=== PATIENT | female | born 1975 | race Caucasian/White ===

== ENCOUNTER → 2018-02-20 14:21 | Outpatient (CLI) | payer OTHER, SELFPAY ==
[2018-02-24 08:34] LABS: HPV HC, High Risk Negative (Negative)
--- OUTSIDE RECORDS SUMMARY | 2018-04-18 00:22 | XMS RPT_ITS | Continuity of Care Document ---
:1975 Author Organization [facility] Address [address] [facility] [address] [place] [address] Phone Care Team Providers Name Role Phone Staci Flowers DO Unavailable JOHN Chapin Unavailable Unavailable Unavailable Unavailable Problems Name Dates Details Abnormal glucose tolerance test (Renamed from Abnormal glucose tolerance test (GTT)) (R73.02, 790.22) Status: Active BMI 36.0-36.9,adult (Z68.36, V85.36) Status: Active Body mass index 34.0-34.9, adult (Z68.34, V85.34) Status: Active Encounter for screening for lipid disorder (Z13.220, V77.91) Status: Active Encounter for screening mammogram for breast cancer (Renamed from Encounter for screening mammogram for malignant neoplasm of breast) (Z12.31, V76.12) Status: Active Family history of diabetes mellitus (Z83.3, V18.0) Status: Active Family history of diabetes mellitus in grandmother (Z83.3, V18.0) Status: Active History of abnormal cervical Pap smear (Z87.898, V13.29) Status: Active Influenza vaccination declined (Renamed from Refused influenza vaccine) (Z28.21, V64.06) Status: Active Need for prophylactic vaccination and inoculation against influenza (Renamed from Need for immunization against influenza) (Z23, V04.81) Status: Active Nonsmoker (Z78.9, V49.89) Status: Active PCOD (polycystic ovarian disease) (E28.2, 256.4) Comments: used to see Dr Pritchard when fertile and child bearing yrs with her PCOD but now no longer working on having children so would like to do female health here Status: Active Screening for HPV (human papillomavirus) (Renamed from Encounter for screening for human papillomavirus (HPV)) (Z11.51, V73.81) Status: Active Sore throat (J02.9, 462) Status: Active Well woman exam (Renamed from Encounter for well woman exam) (Z01.419, V72.31) Status: Active Medications Name Dates Details Aspirin Low Dose 81 MG Oral Tablet Delayed Release 1 (one) Tablet DR qd for 30 days Refills: 0 Ordered:26-Jan-2016 Abner Flowers DO, DO, Kathleen Start : 26-Jan-2016 Active MedroxyPROGESTERone Acetate 10 MG Oral Tablet 1 (one) Tablet qd for 30 days Quantity: 14 {Tablet} Refills: 11 Ordered:20-Feb-2018 Abner Flowers DO, DO, Kathleen Start : 20-Feb-2018 Active Comments:take first 14days of month only MetFORMIN HCl 500 MG Oral Tablet 1 (one) Tablet Tablet bid for 0 days Quantity: 60 {Tablet} Refills: 3 Ordered:01-Feb-2017 Shanti Trinidad LPN Start : 01-Feb-2017 Active Augmentin 875-125 MG Oral Tablet 1 Tablet bid for 0 days Quantity: 20 {Tablet} Refills: 0 Ordered:26-Jan-2016 Amber Chapin LPN Start : 03-Oct-2012 End : 26-Jan-2016 Inactive Nasonex 50 MCG/ACT Nasal Suspension 1 spray(s) each nostril daily for 0 days Quantity: 1 {Suspension} Refills: 0 Ordered:26-Jan-2016 Amber Chapin LPN Start : 03-Oct-2012 End : 26-Jan-2016 Inactive No Known Historical Medications POLYMYXIN B-TRIMETHOPRIM, 12844-9.1UNIT/ML-% (Ophthalmic Solution) 1 Drop(s) q3hrs for 7 days Refills: 0 Ordered:23-Aug-2011 Moon Mejia CNP Start : 23-Aug-2011 End : 30-Aug-2011 Inactive Allergies and Adverse Reactions Name Dates Details No Known Drug Allergies (Allergy) Onset: 23-Aug-2011 Status: Active Past Medical History Name Dates Details BMI 35.0-35.9,adult (Z68.35, V85.35) Status: Inactive as of 21-Mar-2017 Conjunctivitis, acute (H10.30, 372.00) Status: Inactive as of 01-Feb-2017 Influenza vaccination declined (Renamed from Refused influenza vaccine) (Z28.21, V64.06) Status: Inactive as of 01-Feb-2017 Irregular menses (N92.6, 626.4) Status: Inactive as of 20-Feb-2018 Left thigh pain (M79.652, 729.5) Status: Inactive as of 20-Feb-2018 Sciatica, left side (M54.32, 724.3) Status: Inactive as of 20-Feb-2018 Sinus congestion (R09.81, 478.19) Status: Inactive as of 01-Feb-2017 Social History Name Dates Details Caffeine Use Comments: qd Status: Active Exercise History: Does not exercise. Status: Active Living Situation: Lives with spouse. Status: Active No Drug Use Status: Active Non Drinker/No Alcohol Use Status: Active Number of Child (age 0-17) Dependents: 3. Status: Active Tobacco use: Never smoker. Status: Active Smoking Status Name Dates Details Never smoker Vital Signs Date Test Result Details 03-Tff-178050:01 Temperature 97.1 f Comments: Method: Temporal Pulse 86 /min Comments: Pattern: Regular Respiration Rate 18 /min Comments: Pattern: Unlabored O2 SAT 96 % Comments: Room air BP Systolic 148 mm[Hg] Comments: Patient Position: Sitting; Cuff Location: Left Arm; Cuff Size: Standard BP Diastolic 82 mm[Hg] Comments: Patient Position: Sitting; Cuff Location: Left Arm; Cuff Size: Standard Weight 181.375 lb Height 61 in Body Mass Index Calculated 34.27 kg/m2 Body Surface Area Calculated 1.81 m2 26-Ady-926672:21 Temperature 98.4 f Pulse 74 /min Comments: Pattern: Regular Respiration Rate 16 /min Comments: Pattern: Unlabored O2 SAT 96 % Comments: Room air BP Systolic 124 mm[Hg] Comments: Patient Position: Sitting; Cuff Location: Left Arm; Cuff Size: Standard BP Diastolic 82 mm[Hg] Comments: Patient Position: Sitting; Cuff Location: Left Arm; Cuff Size: Standard Weight 192 lb Height 61 in Body Mass Index Calculated 36.28 kg/m2 Body Surface Area Calculated 1.86 m2 :37 Temperature 98.5 f Comments: Method: Temporal Pulse 44 /min Comments: Pattern: Regular Respiration Rate 18 /min Comments: Pattern: Unlabored O2 SAT 97 % Comments: Room air BP Systolic 118 mm[Hg] Comments: Patient Position: Sitting; Cuff Location: Left Arm; Cuff Size: Large BP Diastolic 70 mm[Hg] Comments: Patient Position: Sitting; Cuff Location: Left Arm; Cuff Size: Large Weight 188.125 lb Height 61 in Body Mass Index Calculated 35.55 kg/m2 Body Surface Area Calculated 1.84 m2 1-Elx-353801:38 Pulse 66 /min Comments: Pattern: Regular Respiration Rate 18 /min Comments: Pattern: Unlabored O2 SAT 97 % Comments: Room air BP Systolic 122 mm[Hg] Comments: Patient Position: Sitting; Cuff Location: Left Arm; Cuff Size: Standard BP Diastolic 80 mm[Hg] Comments: Patient Position: Sitting; Cuff Location: Left Arm; Cuff Size: Standard Weight 181.125 lb Height 61 in Body Mass Index Calculated 34.22 kg/m2 Body Surface Area Calculated 1.81 m2 :51 Temperature 96.8 f Comments: Method: Temporal Pulse 71 /min Comments: Pattern: Regular Respiration Rate 16 /min Comments: Pattern: Unlabored O2 SAT 97 % Comments: Room air BP Systolic 120 mm[Hg] Comments: Patient Position: Sitting; Cuff Location: Left Arm; Cuff Size: Standard BP Diastolic 74 mm[Hg] Comments: Patient Position: Sitting; Cuff Location: Left Arm; Cuff Size: Standard :34 Temperature 98.9 f Comments: Method: Oral Pulse 66 /min Comments: Pattern: Regular Respiration Rate 16 /min O2 SAT 97 % Comments: Room air BP Systolic 112 mm[Hg] Comments: Patient Position: Sitting; Cuff Location: Left Arm; Cuff Size: Standard BP Diastolic 72 mm[Hg] Comments: Patient Position: Sitting; Cuff Location: Left Arm; Cuff Size: Standard Results Date Description Value Details :34 Microscopic Examination Comments: PATIENT WAS FASTINGPERFORMED BY: RUBIO [facility] [id number] [facility] [id number] Bacteria Few (Normal) Mucus Threads Present (Normal) Epithelial Cells (non renal) 0-10 {/hpf} (Normal) Range: 0 - 10 RBC 0-2 {/hpf} (Normal) Range: 0 - 2 WBC 0-5 {/hpf} (Normal) Range: 0 - 5 :34 TSH (40928) Comments: PATIENT WAS FASTINGPERFORMED BY: [employer] [facility] [id number] TSH 1.490 {uIU/mL} (Normal) Range: 0.450-4.500 :34 URINALYSIS, W/ MICRO (21885) Comments: PATIENT WAS FASTINGPERFORMED BY: [employer] [facility] [id number] Microscopic Examination See below: (Normal) Comments: Microscopic was indicated and was performed. Microscopic Examination MICRON (Normal) Comments: Microscopic follows if indicated. Nitrite, Urine Negative (Normal) Urobilinogen,Semi-Qn 0.2 mg/dL (Normal) Range: 0.2-1.0 Bilirubin Negative (Normal) Occult Blood Negative (Normal) Ketones Trace (Abnormal) Glucose Negative (Normal) Protein Negative (Normal) WBC Esterase Negative (Normal) Appearance Clear (Normal) Urine-Color Yellow (Normal) pH 6.5 (Normal) Range: 5.0-7.5 Specific [place] 1.011 (Normal) Range: 1.005-1.030 :34 MICROALBUMIN: CREATININE RATIO Comments: PATIENT WAS FASTINGPERFORMED BY: [employer] [facility] [id number] ([id number]) AND (61949) Microalb/Creat Ratio <4.6 {mg/g_creat} (Normal) Range: 0.0-30.0 Microalbumin, Urine <3.0 ug/mL (Normal) Creatinine, Urine 64.6 mg/dL (Normal) :34 METABOLIC PANEL, COMPREHENSIVE Comments: PATIENT WAS FASTINGPERFORMED BY: [employer] [facility] [id number] (50179) ALT (SGPT) 18 [iU]/L (Normal) Range: 0-32 AST (SGOT) 18 [iU]/L (Normal) Range: 0-40 Alkaline Phosphatase, S 60 [iU]/L (Normal) Range: 39-117 Bilirubin, Total 0.4 mg/dL (Normal) Range: 0.0-1.2 A/G Ratio 1.7 (Normal) Range: 1.2-2.2 Globulin, Total 2.8 g/dL (Normal) Range: 1.5-4.5 Albumin, Serum 4.7 g/dL (Normal) Range: 3.5-5.5 Protein, Total, Serum 7.5 g/dL (Normal) Range: 6.0-8.5 Calcium, Serum 9.6 mg/dL (Normal) Range: 8.7-10.2 Carbon Dioxide, Total 21 mmol/L (Normal) Range: 18-29 Chloride, Serum 100 mmol/L (Normal) Range: 96-106 Potassium, Serum 4.7 mmol/L (Normal) Range: 3.5-5.2 Sodium, Serum 142 mmol/L (Normal) Range: 134-144 BUN/Creatinine Ratio 12 (Normal) Range: 9-23 eGFR If Africn Am 125 mL/min/1.73 (Normal) eGFR If NonAfricn Am 109 mL/min/1.73 (Normal) Creatinine, Serum 0.66 mg/dL (Normal) Range: 0.57-1.00 BUN 8 mg/dL (Normal) Range: 6-24 Glucose, Serum 85 mg/dL (Normal) Range: 65-99 4-Qol-059693:34 CBC W/AUTO DIFF WBC (53025) Comments: PATIENT WAS FASTINGPERFORMED BY: [facility] [facility] [id number] Immature Grans (Abs) 0.0 {x10E3/uL} (Normal) Range: 0.0-0.1 Immature Granulocytes 0 % (Normal) Baso (Absolute) 0.0 {x10E3/uL} (Normal) Range: 0.0-0.2 Eos (Absolute) 0.2 {x10E3/uL} (Normal) Range: 0.0-0.4 Monocytes(Absolute) 0.7 {x10E3/uL} (Normal) Range: 0.1-0.9 Lymphs (Absolute) 2.9 {x10E3/uL} (Normal) Range: 0.7-3.1 Neutrophils (Absolute) 6.5 {x10E3/uL} (Normal) Range: 1.4-7.0 Basos 0 % (Normal) Eos 2 % (Normal) Monocytes 7 % (Normal) Lymphs 28 % (Normal) Neutrophils 63 % (Normal) Platelets 340 {x10E3/uL} (Normal) Range: 150-379 RDW 13.6 % (Normal) Range: 12.3-15.4 MCHC 34.2 g/dL (Normal) Range: 31.5-35.7 MCH 30.2 pg (Normal) Range: 26.6-33.0 MCV 88 fL (Normal) Range: 79-97 Hematocrit 41.8 % (Normal) Range: 34.0-46.6 Hemoglobin 14.3 g/dL (Normal) Range: 11.1-15.9 RBC 4.74 {x10E6/uL} (Normal) Range: 3.77-5.28 WBC 10.3 {x10E3/uL} (Normal) Range: 3.4-10.8 :34 LIPID PANEL (36346) Comments: PATIENT WAS FASTINGPERFORMED BY: [facility] CenterKjsimp[address] [facility] [id number] LDL/HDL Ratio 2.5 {ratio_units} (Normal) Range: 0.0-3.2 Comments: LDL/HDL Ratio Men Women 1/2 Avg.Risk 1.0 1.5 Av g.Risk 3.6 3.2 2X Avg.Risk 6.2 5.0 3X Avg.Risk 8.0 6.1 LDL Cholesterol Calc 118 mg/dL (Abnormal) Range: 0-99 VLDL Cholesterol Kareem 23 mg/dL (Normal) Range: 5-40 HDL Cholesterol 47 mg/dL (Normal) Triglycerides 116 mg/dL (Normal) Range: 0-149 Cholesterol, Total 188 mg/dL (Normal) Range: 100-199 4-Mxl-617581:24 HgA1C , Office (82419) HgA1C , Office 5.6 % (Normal) Range: 4.6 - 7.1 :53 PAP I-G HPV Hi Risk Comments: Order Date: 01/27/16Order Info: 0830- 1 - [id number] INFORMATION:- CLINICAL INFORMATION:- DATE LMP/MENOPAUSE: LMP- COLLECTION VIAL: Thin Prep Vial- LINEWORKER SOURCE: CERVICAL/ENDOCERVICAL- COLLECTION TECHN IQUE: CX BROOM ONLYSpecimen Comment: [id number] Comment: No. of containers..01 CYTYC Thin Prep VialLabCorp (refer to report for specific site)refer to report for address and phone number HPV HC,HGH RISK Negative Comments: This high-risk HPV test detects thirteen high-risk types(16/18/31/33/35/39/45/51/52/56/58/59/68) withoutdifferentiation.Performed at: - [facility] [id number] (Normal) b Director: Ayanna Tovar MD, Phone: [phone] at: = - [facility] [id number] Director: Ayanna Tovar MD, Phone: [phone] PAPSMR Comment Comments: The Pap smear is a screening test designed to aid in thedetection of premalignant and malignant conditions of theuterine cervix. It is not a diagnostic procedure andshould not be used as the sole means (Normal) of detecting cervicalcancer. Both false-positive and false-negative reports dooccur. COMM . (Normal) TEST METHOD Comment Comments: This liquid based ThinPrep(R) pap test was screened withthe use of an image guided system. (Normal) Path prov. ICD9 Comment Comments: R87.610 (Normal) SIGN Comment Comments: Hetal Brewster MD, Pathologist (Normal) PERFORM Comment Comments: Chris Erickson, Washing Machine Installer (ASCP) (Normal) ADEQ Comment Comments: Satisfactory for evaluation. Endocervical and/or squamous metaplasticcells (endocervical component) are present. (Normal) DIAGN Comment Comments: EPITHELIAL CELL ABNORMALITY.ATYPICAL SQUAMOUS CELLS OF UNDETERMINED SIGNIFICANCE. (Abnormal) :06 HgA1C , Office (83053) HgA1C , Office 5.6 % (Normal) Range: 4.6 - 7.1 :51 LIPID PANEL (23033) Comments: PATIENT WAS FASTINGPERFORMED BY: CB [facility] [id number] [facility] [id number] LDL/HDL Ratio 2.2 {ratio_units} (Normal) Range: 0.0-3.2 Comments: LDL/HDL Ratio Men Women 1/2 Avg.Risk 1.0 1.5 Av g.Risk 3.6 3.2 2X Avg.Risk 6.2 5.0 3X Avg.Risk 8.0 6.1 LDL Cholesterol Calc 104 mg/dL (Abnormal) Range: 0-99 VLDL Cholesterol Kareem 21 mg/dL (Normal) Range: 5-40 HDL Cholesterol 48 mg/dL (Normal) Comments: According to ATP-III Guidelines, HDL-C >59 mg/dL is considered anegative risk factor for CHD. Triglycerides 104 mg/dL (Normal) Range: 0-149 Cholesterol, Total 173 mg/dL (Normal) Range: 100-199 90-Zvp-315194:30 Throat Culture (75925) Comments: PATIENT NOT FASTINGPERFORMED BY: [facility] [facility] [id number] Information: SRC:ROLANDO [id number] Result 1 BETAGA (Normal) Comments: Beta hemolytic Streptococcus, group AHeavy growthPenicillin and ampicillin are drugs of choice for treatment ofbeta- hemolytic streptococcal infections. Susceptibility testing ofpenicillins and other bet a-lactam agents approved by the FDA fortreatment of beta-hemolytic streptococcal infections need not beperformed routinely because nonsusceptible isolates are extremelyrare in any beta-hemolytic strepto coccus and have not been reportedfor Streptococcus pyogenes (group A). (CLSI 2010) Upper Respiratory Culture Final report (Normal) :52 Rapid Strep Test, Office (69180) Rapid Strep Test, Negative (Normal) Office :14 HCG QUANT. 1421 m[iU]/mL Range: 0-6 Non-preg (Abnormal) Comments: QUANTITATIVE hCG () TEST is *POSITIVE* AMENDED REPORT 10/29/06 0433 HCG QUANT. previously reported as: 1 mIU/mL AMENDED REPORT 10/29/06 0631 HCG QUANT. previously reported as: 1421 H mIU/mL Plan of Care Name Dates Details Instructions Encounter for screening for lipid disorder : Self breast exam Indication: Encounter for screening for lipid disorder Well woman exam (Renamed from Encounter for well woman exam) : HPV Vaccine Information 2005 Indication: Well woman exam (Renamed from Encounter for well woman exam) Well woman exam (Renamed from Encounter for well woman exam) : Self breast exam Indication: Well woman exam (Renamed from Encounter for well woman exam) Well woman exam (Renamed from Encounter for well woman exam) : *Well Female Maintenance ([facility]) Indication: Well woman exam (Renamed from Encounter for well woman exam) Well woman exam (Renamed from Encounter for well woman exam) : Pap/Pelvic/Bimanual/Rectal/Breast Exam was done. Indication: Well woman exam (Renamed from Encounter for well woman exam) BMI 36.0-36.9,adult : Follow up if no improvement or if symptoms worsen Indication: BMI 36.0-36.9,adult Left thigh pain : Sciatica: nerve pain Indication: Left thigh pain Left thigh pain : Eprescribed prescriptions (G8553) Indication: Left thigh pain Well woman exam (Renamed from Encounter for well woman exam) : Safe sex Indication: Well woman exam (Renamed from Encounter for well woman exam) Well woman exam (Renamed from Encounter for well woman exam) : HPV Vaccine Information 2005 Indication: Well woman exam (Renamed from Encounter for well woman exam) Well woman exam (Renamed from Encounter for well woman exam) : Self breast exam Indication: Well woman exam (Renamed from Encounter for well woman exam) Well woman exam (Renamed from Encounter for well woman exam) : *Well Female Maintenance (SMC) Indication: Well woman exam (Renamed from Encounter for well woman exam) Well woman exam (Renamed from Encounter for well woman exam) : Pap/Pelvic/Bimanual/Rectal/Breast Exam was done. Indication: Well woman exam (Renamed from Encounter for well woman exam) Conjunctivitis, acute : Follow up if no improvement or if symptoms worsen Indication: Conjunctivitis, acute Planned Observations HgA1C , Office (08615)Indication: Family history of diabetes mellitus in grandmother On: 42-Slz-167836:31 Request LIPID PANEL (14109)Indication: Encounter for screening for lipid disorder On: 57-Iwz-268968:30 Request HPV automatic (63998)Indication: Screening for HPV (human papillomavirus) (Renamed from Encounter for screening for human papillomavirus (HPV)) On: 47-Hhl-815851:24 Request Thin prep Pap (66348) (no STD testing)Indication: Well woman exam (Renamed from Encounter for well woman exam) On: 08-Xxb-318193:57 Request HPV automatic (31225)Indication: Screening for HPV (human papillomavirus) (Renamed from Encounter for screening for human papillomavirus (HPV)) On: 1-Won-492345:55 Request Thin prep Pap (64969) (no STD testing)Indication: Well woman exam (Renamed from Encounter for well woman exam) On: 1-Ort-875833:30 Request Planned Procedures SCREENING DIGITAL TOMOSYNTHESIS OF BREAST (34852)By: Lionel On: 20-Feb-2018 Staci Villa DO, DO, Kathleen MAMMOGRAM, SCREENING, BOTH BREAST (25503)By: Lionel LOPEZ, On: 26-Jan-2016 Intent Staci Goldberg DO Instructions Name Dates Details Left thigh pain : How to access health information online Indication: Left thigh pain Left thigh pain : How to access health information online - Detail Indication: Left thigh pain Left thigh pain : Patient Instructions Indication: Left thigh pain BMI 35.0-35.9,adult : How to access health information online Indication: BMI 35.0-35.9,adult BMI 35.0-35.9,adult : How to access health information online - Detail Indication: BMI 35.0-35.9,adult BMI 35.0-35.9,adult : Patient Instructions Indication: BMI 35.0-35.9,adult Sore throat : Patient Instructions Indication: Sore throat Encounters Office Visit On: 20-Feb-2018 11:01 Encounter Reason: Well Women Exam - The patient feels well with minor complaints, has good energy level and is sleeping well. Pap smear: date of last pap: (2015). Contraceptive history: The patient is not using any metho End: 20-Feb-2018 12:32 d of contraception at this time. Patient exercises a weekly. The patient reports that she performs monthly self breast exam. Calcium intake includes 1 serving milk daily. The patient has been using horm one replacement therapy, while she denies the use of oral contraceptives. Menstruation: Last menstrual period date: (01/10).Encounter Diagnosis: Well woman exam (Renamed from Encounter for well woman exam), Encounter for screening mammogram for breast cancer (Renamed from Encounter for screening mammogram for malignant neoplasm of breast), Body mass index 34.0- 34.9, adult, Nonsmoker, Screening for HPV (human papillomavirus) (Renamed from Encounter for screening for human papillomavirus (HPV)), History of abnormal cervical Pap smear, Influenza vaccination declined (Renamed from Refused influenza vaccine), Encounter for screening for lipid disorder, Family history of diabetes mellitus in grandmother, PCOD (polycystic ovarian disease) [facility] Office Visit On: 21-Mar-2017 15:18 Encounter Reason: Leg Pain - This condition occurred without any known injury. The patient sustained an injury to the left thigh. This occurred 4 month(s) ago. There is no radiation. The patient describes the pain as bur End: 21-Mar-2017 15:38 dandy. The symptoms occur constantly. The patient describes symptoms as worsening. Note for Leg pain: Left thigh pain, comes and goes, then Thanksgi day felt like hot needle in left anterior thigh, some worse than others. Burning Encounter Diagnosis: Nonsmoker, BMI 36.0-36.9,adult, Left thigh pain, Sciatica, left side [facility] Office Visit On: 01-Feb-2017 10:34 Encounter Reason: Follow up for chronic medical issues - The patient feels well with minor complaints, has good energy level and is sleeping well. Patient has been compliant with instructions. Current medication use: no End: 01-Feb-2017 15:11 side effects and compliant with dosing regimen. Patient sleeps 7 hours per night. Nutrition: balanced diet and supplemental vitamins. The medical issues the patient is following up for include All identified problems below and other. Encounter Diagnosis: Nonsmoker, BMI 35.0-35.9,adult, PCOD (polycystic ovarian disease), Encounter for screening for lipid disorder, Family history of diabetes mellitus, Abnormal glucose tolerance test (Renamed from Abnormal glucose tolerance test (GTT)), Influenza vaccination declined (Renamed from Refused influenza vaccine) [facility] Office Visit On: 26-Jan-2016 13:28 Encounter Reason: Well Women Exam - The patient feels well with minor complaints, has good energy level and is sleeping well. Pap smear: date of last pap: (2 yrs). Contraceptive history: The patient is not using any meth End: 26-Jan-2016 16:45 od of contraception at this time. Patient does not exercise. The patient reports that she does not perform monthly breast self exam. Calcium intake includes 2 serving(s) milk daily. The patient denies t he use of oral contraceptives or hormone replacement therapy. Menstruation: Last menstrual period date: (01/09/16).Encounter Diagnosis: Well woman exam (Renamed from Encounter for well woman exam), Encounter for screening mammogram for breast cancer (Renamed from Encounter for screening mammogram for malignant neoplasm of breast), Screening for HPV (human papillomavirus) (Renamed from Encounter for screening for human papillomavirus (HPV)), PCOD (polycystic ovarian disease), Nonsmoker, Body mass index 34.0-34.9, adult, Need for prophylactic vaccination and inoculation against influenza (Renamed from Need for immunization against influenza), Influenza vaccination declined (Renamed from Refused influenza vaccine), Irregular menses, Encounter for screening for lipid disorder, Family history of diabetes mellitus [facility] Office Visit On: 03-Oct-2012 9:49 Encounter Reason: Sore Throat - Onset was 11 day(s) ago.Encounter Diagnosis: Sore throat (462), Sinus Congestion (478.19) End: 03-Oct-2012 10:11 [facility] Office Visit On: 23-Aug-2011 11:32 Encounter Reason: Eye Redness - Symptoms include eye redness, eye itching and lacrimation. Symptoms are located in the right eye. Onset was sudden 1 day(s) ago. The patient describes this as worsening.Encounter Diagnosis: End: 23-Aug-2011 12:00 CONJUNCTIVITIS, ACUTE NOS (372.00) [facility]
--- OUTSIDE RECORDS SUMMARY | 2018-04-18 00:22 | XMS RPT_ITS ---
:1975 Author Organization OHIP Care Team Providers Name Role Phone Staci Flowers Attending Unavailable Staci Flowers Referring Unavailable Staci Flowers Primary Care Unavailable Staci Flowers DO Attending Unavailable Staci Flowers DO Consulting Unavailable PROBLEMS PROBLEMS DATE TYPE CONDITION / CODE ATTENDING STATUS SOURCE 02/21/2018 Unknown Z01.419 - Encounter Lionel, Active [place] for gynecological [facility] (general) (routine) Repository without abnormal findings / Z01.419(ICD-10) 02/21/2018 Unknown Z11.51 - Encounter Lionel, Active [place] for screening for [facility] human [facility] (HPV) / Repository Z11.51(ICD-10) PROCEDURES PROCEDURES No Procedure Records FoundRESULTS RESULTS PAP I-G HPV HI Collected: 02/20/2018 Status: F Source: PATRICIO RISK 1:07 PM [facility] REPOSITORY Order Comment: CYTOLOGY INFORMATION: - CLINICAL INFORMATION: - DATE LMP/MENOPAUSE: LMP - COLLECTION VIAL: Thin Prep Vial - PROGRAM COUNSELOR SOURCE: CERVICAL/ENDOCERVICAL - COLLECTION TECHNIQUE: CX BROOM ONLY Specimen Comment: [id number] Specimen Comment: Source.............Cervix;Endocervix Specimen Comment: No. of containers..01 ThinPrep Vial TYPE CODE TESTS RESULT OUT OF RANGE REFERENCE UNITS LAB L7400.0800 . Normal DIAGN Comment Result Comment: NEGATIVE FOR INTRAEPITHELIAL LESION AND MALIGNANCY. LAB L7400.0900 . Normal ADEQ Comment Result Comment: Satisfactory for evaluation. Endocervical and/or squamous metaplastic cells (endocervical component) are present. LAB L7400.1400 . Normal PERFORM Comment Result Comment: Caitlyn Kenney, Marine Steam [employer]itter (ASCP) LAB L7400.2575 . Normal TEST METHOD Comment Result Comment: This liquid based ThinPrep(R) pap test was screened with the use of an image guided system. LAB L7400.2600 . Normal . COMM LAB L7400.2700 . Normal PAPSMR Comment Result Comment: The Pap smear is a screening test designed to aid in the detection of premalignant and malignant conditions of the uterine cervix. It is not a diagnostic procedure and should not be used as the sole means of detecting cervical cancer. Both false-positive and false-negative reports do occur. LAB L7400.2950 Negative Normal HPV Negative HC,HGH RISK Result Comment: This high-risk HPV test detects thirteen high-risk types (16/18/31/33/35/39/45/51/52/56/58/59/68) without differentiation. Performed at: - [facility] [id number] Repairer And Checker: Ayanna Tovar MD, Phone: [phone] Performed at: = - [facility] [id number] Repairer And Checker: Ayanna Tovar MD, Phone: [phone] Performed By: #### L7400.0375 #### [facility] (refer to report for specific site) refer to report for address and phone number ALLERGIES ALLERGIES No Allergies Records FoundENCOUNTERS ENCOUNTERS ADMIT/DISCHARGE ACCOUNT ADMITTING ENCOUNTER LOCATION SOURCE NUMBER [facility] 02/20/2018 [id number] Ambulatory [address] ing:[facility] Repository 02/04/2018 [id number] Ambulatory Building:[facility] Repository PAYERS PAYERS ENCOUNTER GUARANTOR PAYER SUBSCRIBER SOURCE 02/20/2018 Robert [id number] Primary Robert Peterson: Patricio [address] Insurance:[place] [id number] [id number]: [phone] Effective Repository [phone] () Date:2018-02-20 02/20/2018 Secondary NOT GIVENUNK [place] Insurance:SELF PAY [facility] Number: Effective Repository Date:2018-02-20 02/04/2018 Jonah Peterson: Primary Jonah Peterson: ANNETTA Practices [id number] Insurance:ReferralsP [id number] Repository [address] bundytiffaniyash Number: YanyLuda [place] Effective Date: - [place] [address]Ogh: [phone] [id number] [id number]: ()Tel: Name: () ()
== END ==
PROVIDERS: Family Provider Internal Medicine; PCP Internal Medicine; Referring Provider Internal Medicine; Visit Provider Internal Medicine
DX: Z01.419 Encounter for gynecological examination (general) (routine) without abnormal findings (principal); Z11.51 Encounter for screening for human papillomavirus (HPV)
CPT/HCPCS: 87624; 88175; G0145

== ENCOUNTER → 2019-05-01 11:49 | Outpatient (CLI) | payer SELFPAY ==
--- NOTE | 2019-05-01 11:57 | BI_ITS ---
MAMMOGRAPHY - BILATERAL SCREENING REASON FOR EXAM: Female, 43 years old. Routine annual screening examination. PERTINENT HISTORY: Aunt with breast cancer. TECHNIQUE: Digital bilateral breast earle (3D mammographic acquisition) in the CC and MLO projections. 2-D mediolateral oblique (MLO) and craniocaudad (CC) views of both breasts were obtained. CAD: Full Field Digital Mammography with Computer Added Detection was performed. COMPARISON: Comparison is made with prior examination dated July 21, 2009 and January 15, 2012. FINDINGS: Breast Composition: The breasts are heterogeneously dense, which may obscure small masses. There are no dominant masses or suspicious calcifications. Stable benign-appearing bilateral axillary lymph nodes. No other significant abnormalities are identified. There has been no significant change since the prior study. BI/SCREEN MAMM (CAD) W/EARLE BILAT IMPRESSION: Stable bilateral screening mammogram. Yearly follow-up mammogram recommended. (A) ASSESSMENT CATEGORY: BIRADS Category 2: Benign. A letter regarding these results will be sent to the patient by the facility within 30 days. Approximately 10% of breast cancers are not detected by mammography. A normal mammogram should not delay biopsy of a clinically suspicious abnormality. [id number] Electronically Signed: Zi Dong, at 12:52 EST , Service support ,
== END ==
PROVIDERS: Family Provider Internal Medicine; PCP Internal Medicine; Referring Provider Internal Medicine; Visit Provider Internal Medicine
DX: Z12.31 Encounter for screening mammogram for malignant neoplasm of breast (principal)
CPT/HCPCS: 77063; 77067

== ENCOUNTER 2021-07-07 15:11 | Outpatient (CLI) | payer OTHER, SELFPAY ==
[2021-07-14 16:01] LABS: HPV Reflexed? NOT INDICATED
== END 2021-07-07 23:59 | disposition home or self-care (01) ==
PROVIDERS: PCP Internal Medicine; Referring Provider Internal Medicine; Visit Provider Internal Medicine
DX: Z01.419 Encounter for gynecological examination (general) (routine) without abnormal findings (principal)
CPT/HCPCS: 88175; G0145

== ENCOUNTER → 2021-07-15 | Outpatient (CLI) | payer SELFPAY, OTHER ==
--- NOTE | 2021-07-15 08:32 | BI_ITS ---
MAMMOGRAPHY - BILATERAL SCREENING 3-D TOMOSYNTHESIS REASON FOR EXAM: Female, 45 years old. SCREENING PERTINENT HISTORY: No significant family history. TECHNIQUE: 2-D mammograms and 3-D Tomosynthesis of the breast (s) were performed. CAD was performed. COMPARISON: 05/01/2019 FINDINGS: The breast composition is heterogeneously dense that can obscure small breast masses. Scattered benign calcifications are seen. No dense spiculated masses or suspicious microcalcifications are identified. No architectural distortion is identified. There is no skin thickening or retraction. There has been no significant change since the prior study. BI/SCRN MAMM (CAD)W/EARLE BILAT IMPRESSION: No mammographic signs of malignancy. Routine yearly mammograms recommended. ASSESSMENT CATEGORY: BIRADS Category 1: Negative. A letter regarding these results will be sent to the patient by the facility within 30 days. FOLLOW UP RECOMMENDATION: Yearly follow up mammogram recommended. (A) Approximately 10% of breast cancers are not detected by mammography. A normal mammogram should not delay biopsy of a clinically suspicious abnormality. Electronically Signed: Jose Flores MD at 9:25 EDT ,
== END | disposition home or self-care (01) ==
LOC: OPBI 08:30
PROVIDERS: PCP Internal Medicine; Referring Provider Internal Medicine; Visit Provider Internal Medicine
DX: Z12.31 Encounter for screening mammogram for malignant neoplasm of breast (principal)
CPT/HCPCS: 77063; 77067